=== PATIENT | female | born 1985 | race Caucasian/White ===

== ENCOUNTER 2017-02-07 10:48 | Emergency (ER) | payer OTHER ==
[2017-02-07 11:39] VITALS: BP 102/64
--- NOTE | 2017-02-07 11:58 | UC ---
Throat Pain/Nasal Bryan HPI - HPI Summary HPI Summary: 31 Y/O female presents with C/O cough, throat pain and headache. States has been having sore throat and nasal congestion off and on for over a month. Presents today with headache, cough, and sore throat. C/O low grade fever that started today. Has been taking over the counter cold medications. Medical history and medications have been reviewed at this visit. - History of Current Complaint Chief Complaint: UCGeneralIllness Stated Complaint: SORE THROAT HEADACHE Time Seen by Provider: 02/07/17 11:25 Hx Obtained From: Patient Hx Last Menstrual Period: 01/30/2017 ?: No Onset/Duration: Gradual Onset, Lasting Weeks Severity: Moderate Pain Intensity: 5 Pain Scale Used: 0-10 Numeric Cough: Productive Associated Signs & Symptoms: Positive: Fever Related History: Seasonal Allergies - Epiglottits Risk Factors Epiglottis Risk Factors: Negative - Allergies/Home Medications Allergies/Adverse Reactions: Allergies Allergy/AdvReac Type Severity Reaction Status Date / Time Penicillins Allergy Hives Verified 02/07/17 11:28 Home Medications: Home Medications FLUoxetine CAP* [PROzac CAP*] 20 mg PO DAILY 02/07/17 [History Confirmed ] LevoCETirizine TAB (NF) [Xyzal TAB (NF)] 5 mg PO DAILY 02/07/17 [History Confirmed 02/07/17] PMH/Surg Hx/FS Hx/Imm Hx Previously Healthy: Yes Psychological History: Depression - Surgical History Surgical History: None Surgery Procedure, Year, and Place: rhinoplasty 2014 - Social History Alcohol Use: Occasionally Substance Use Type: None Smoking Status (MU): Never Smoked Tobacco - Immunization History Most Recent Influenza Vaccination: 2016 Most Recent Tetanus Shot: up to date Review of Systems Constitutional: Fever Skin: Negative Eyes: Negative ENT: Sore Throat, Sinus Congestion Respiratory: Cough Cardiovascular: Negative Gastrointestinal: Negative Genitourinary: Negative Motor: Negative Neurovascular: Negative Musculoskeletal: Negative Neurological: Negative Psychological: Negative Is Patient Immunocompromised?: No All Other Systems Reviewed And Are Negative: Yes Physical Exam Triage Information Reviewed: Yes Appearance: Well-Appearing Vital Signs: Initial Vital Signs Temp 99.4 F 02/07/17 11:32 Pulse 73 02/07/17 11:32 Resp 19 02/07/17 11:32 BP 102/64 02/07/17 11:32 Pulse Ox 98 02/07/17 11:32 Vital Signs Reviewed: Yes Eye Exam: Normal Eyes: Positive: Conjunctiva Clear ENT Exam: Other ENT: Positive: Other - Red boggy sinus passages Neck exam: Normal Neck: Positive: No Lymphadenopathy Respiratory Exam: Normal Respiratory: Positive: Lungs clear, Normal breath sounds Cardiovascular Exam: Normal Cardiovascular: Positive: RRR Abdominal Exam: Normal Abdomen Description: Positive: Nontender Musculoskeletal Exam: Normal Neurological Exam: Normal Neurological: Positive: Alert Psychological Exam: Normal Skin Exam: Normal Throat Pain/Nasal Course/Dx - Differential Dx/Diagnosis Differential Diagnosis/HQI/PQRI: Sinusitis Provider Diagnoses: Sinusitis Discharge - Discharge Plan Condition: Stable Disposition: HOME Patient Education Materials: Sinusitis (ED) Referrals: Carly Olson MD [Primary Care Provider] - Additional Instructions: Please start Mucinex 2 x daily for the next week. Increase fluids and get plenty or rest. Fill antibiotic if symptoms / fever persist. Follow up with your primary medical provider or you may return to the walk in as needed.
== END 2017-02-07 12:16 | disposition home or self-care (01) ==
LOC: UCEAST 10:48
DX: J32.9 Chronic sinusitis, unspecified (principal)
CPT/HCPCS: 87651; 99212; G0463